=== PATIENT | male | born 1960 | race Caucasian/White ===

== ENCOUNTER → 2017-02-18 | Outpatient (CLI) | payer OTHER ==
[~2017-02-18] MED LIST: CHOL1000 PO; MULT-506 PO
--- NOTE | 2017-02-19 05:51 | PAP/PSG TECHNICIAN REPORT ---
[facility] Furnace Repairer Helper Polysomnogram Report Study name: None Report date: 02/19/2017 Study date: 02/18/2017 Referring Physician: Catalina Mars M.D. Name: KIMI QUIROZ Interpreting Physician: Kyra Mars M.D. Date of : 1960 Furnace Repairer Helper: Ivan Kirby RPSGT. Sex: Male Age: 56 StudyType: PSG Weight: 246 lbs Height: 56 years, Height 5' 8.5" BMI: 36.86 Medications: LEVOXYL 75 MCG, NASONEX 50 MCG/ACT,MULTI VITAMINS Patient History PATIENT HAS HISTORY OF FATIGUE, LOW ENERGY, SNORING, AND EXCESSIVE DAYTIME SLEEPINESS. ALSO, HAS HISTORY OF RESTLESSNESS. HE IS HERE TODAY FOR AN EVALUATION FOR OCTAVIA. ESS = 9 RM 7 Parameters Monitored NPSG: E1-M2, E2-M1, Fp1-M2, Fp2-M1, F3-M2, F4-M2, F4-M1, C3-M2, C4-M2, C4-M1, O1-M2, O2-M2, O2-M1, T3-M2, T4-M1, P3-M2, P4-M1, CHIN1, CHIN2, HR, EKG, Legs, PFLOW, SNOR, FLOW, CFLOW, Tidal Volume, THOR, ABDO, SpO2, PLTH, CPRESS, ETCO2 Wave, ETCO2, pH Sleep Architecture Sleep Stages Time at Lights Off 9:01:01 PM STAGES Time (min.) TST (%) Time at Lights On 5:32:01 AM Wake 29.0 -- Total Recording Time (TRT) 511.50 min. N1 10.0 2 Total Sleep Period (TSP) 498.5 min. N2 302.5 63 Total Sleep Time (TST) 482.0min. N3 80.0 17 Awake Time 29.5 min. REM 89.5 19 Wake after Sleep Onset 18.5 min. Sleep Efficiency (SE) 94 % Sleep Onset Latency (KANE) 10.5 min. Number of Stage 1 Shifts None Awakenings 19 Stage Changes 85 Number of REM periods 8 REM 89.5 19 REM Latency 68.5 min. NREM 392.5 81 Body Position Analysis Supine Right Left Side Prone Vertical Total Sleep Time (min.) 294.6 42.2 166.1 208.27 0.0 0.0 Total Sleep Time (%) 57% 9% 34% 43 0% N/A% Total Sleep Time REM (min.) 47.0 19.5 23.0 None 0.0 0.0 Total Sleep Time NREM (min.) 226.7 22.7 143.1 None 0.0 0.0 Intermittent Wake (min.) 20.9 1.1 7.0 None 0.0 0.0 Total Sleep Period (%) 57% None None None None None Arousals Myoclonus (PLM) * Events Count Index Events Count Index Spontaneous 19 2 Events Awake (PLMW) 35 72.4 Respiratory 13 1.9 Events Asleep w/ Arousal (PLMA) 6 0.7 PLM 6 1 Events Asleep w/o Arousal (PLMS) 32 4.0 Snoring 10 1 Total Asleep 38 4.7 Total 48 6 Total 73 9 Respiratory Analysis * CA OA MA CH H RERA Total Count 8 28 0 0 148 3 184 Index 1.0 3.5 0.0 0 18.4 0 23.3 Mean Duration 17.3 17.4 0.0 0.00 19.0 15.7 18.6 Longest Duration 22.1 28.5 0.0 0.00 0.0 16.9 59.6 Respiratory Event Summary Total Supine ~Supine Right Left Prone REM NREM Apneas Count 36 34 2 1 1 N/A 26 10 Index 4.5 7 1 1.4 0.4 N/A 17 2 Hypopneas (4% Desat) Count 148 125 23 7 16 N/A 63 85 Index 18.4 27.4 7 10.0 5.8 N/A 42.2 13.0 Apneas & All Hypopneas Count 184 159 25 8 17 N/A 89 95 Index 22.9 35 7 11 6 N/A 59.7 14.5 Respiratory Events (Intelligence Clerk+All Hyp+RERA) Count 184 160 27 8 19 N/A 89 95 Index 23.3 35 8 11.4 6.9 N/A 59.7 15.0 Respiratory Related Arousal Count 13 160 4 0 4 N/A 5 10 Index 1.9 2 1 0 1 N/A 3 2 Snoring Analysis Supine Right Left Prone REM NREM Total Snore duration 59.9 min Snores count 1,721 212 585 N/A 437 2,081 2,518 Snore mean duration 1.4 Sec Snores index 377 302 211 N/A 293.0 318.1 313.4 TST with snoring (%) 12.4% Desaturation Event Summary: Minimum %SpO2 Event Count Mean/Min/Max Duration(sec.) Desaturation Index % Time In Bed > 90 177 22.7 / 6.0 / 60.0 33.9 61.2 86 - 90 39 22.0 / 6.0 / 93.7 12.1 37.8 81 - 85 2 9.4 / 8.8 / 10.0 25.6 0.9 76 - 80 0 N/A 0.0 0.1 71 - 75 0 N/A 0.0 0.0 66 - 70 0 N/A 0.0 0.0 61 - 65 0 N/A 0.0 0.0 56 - 60 0 N/A 0.0 0.0 51 - 55 0 N/A 0.0 0.0 < 50 0 N/A 0.0 0.0 Total REM NREM Awake <50% 0.0 min. 0.0 min. 0.0 min. 0.0 min. 51 - 60% 0.0 min. 0.0 min. 0.0 min. 0.0 min. 61 - 70% 0.0 min. 0.0 min. 0.0 min. 0.0 min. 71 - 80% 0.3 min. 0.2 min. 0.0 min. 0.1 min. 81 - 90% 197.7 min. 42.6 min. 148.5 min. 6.5 min. 91 - 100% 312.8 min. 46.7 min. 244.0 min. 22.2 min. Average 91 91 91 92 Minimum SpO2 79 79 83 80 Desaturation Event Index 22.5 56.3 15.1 20.7 # Desat. Events below 89% 105 62 40 3 Time(%) with Saturation below 89% 8.0 4.0 3.8 0.2 Time(min.) with Saturation below 89% 40.9 20.6 19.4 0.9 Time (mins) REM (mins) NREM (mins) % of TST SpO2 Below 90% 165 76 N89 20.8 SpO2 Below 88% 40 0 0 4 Heart Rate Analysis Min (bpm) Max (bpm) Average (bpm) Awake 49 86 67 NREM 47 83 59 REM 48 83 60 Overall 47 83 59 Supplemental O2 Values Minimum O2 level: None Value Start Time End Time Furnace Repairer Helper Comments Mr. Quiroz slept in the right, left and supine positions. No cardiac arrhythmia noted. Leg movements noted. No bruxism noted. Snoring was noted and scored as a 4 on a scale of 1 through 5. (0=no snoring, 5=snoring loud enough to be heard through a closed door or down the spence way) Mr. Quiroz awoke to use the restroom 0 times during the night. Mr. Quiroz stated I slept as well as I do when I am in my own bed. The final report will be interpreted and signed by a sleep physician. The completed physician report will then be placed in the patient medical record. Therapy (cm H2O) 0 TIB (min.) 511.0 TST (min.) 482.0 Sleep Onset (min.) 10.5 REM Onset From Sleep (min.) 68.5 Sleep Efficiency % 94 Wakefulness (%) 6 Wakefulness (min.) 29.5 NREM 1 (%) 2 NREM 1 (min.) 10.0 NREM 2 (%) 63 NREM 2 (min.) 302.5 NREM 3 (%) 17 NREM 3 (min.) 80.0 REM (%) 19 REM (min.) 89.5 # Arousals 48 Arousal Index 6 # Snore 2,518 Snore Index 313.4 AHI 22.9 AHI Supine 35 AHI Non-Supine 7 NREM AHI 14.5 REM AHI 59.7 RDI 23.3 # Obstructive Apnea 28 # Central Apnea 8 # Mixed Apnea 0 # Hypopneas 148 RERAs 3 Total Respiratory Events 187 Time Below SpO2 89% (min.) 40.0 Mean NREM SpO2 (%) 91 Mean REM SpO2 (%) 91 Mean Sleep SpO2 (%) 91 Min NREM SpO2 (%) 83 Min REM SpO2 (%) 79 Position Supine (min.) 294.6 Position Non-supine (min.) 208.3 LM Index Sleep 4.7 LM Index NREM 3.8 LM Index REM 8.7 Mean Heart Rate (bpm) 59 Min Heart Rate (bpm) 47
--- NOTE | 2017-03-03 21:29 | POLYSOMNOGRAPH REPORT ---
REFERRING PERSON: Dr. Anthony Mars. VALET ATTENDANT: Ivan Kirby. Mr. Quiroz is a 56-year-old male with fatigue, snoring and excessive daytime sleepiness. He comes to the sleep lab to rule out sleep-disordered breathing. His [place] sleepiness scale score on the evening of this study is 9. BMI is 36.86. Following the technical and digital specifications of the [place] [employer] (AASM) a standard diagnostic polysomnogram was performed monitoring EEG, EOG, EMG (chin and leg deviations), oxygen saturation, body position, digital video, respiratory effort and airflow. The sleep Stage and event scoring was based on the AASM Manual for the Scoring of Sleep and Associated Events 2007 edition. Apneas are defined as a drop in the peak thermal sensor excursion by >90% of baseline for at least 10 seconds. Hypopneas were scored using the 4% oxygen desaturation rule (4A-[employer]ic[employer]) and a decrease in the nasal pressure excursions by >30% of baseline for at least 10 seconds. Respiratory effort-related arousal (RERA's) is defined as a sequence of breaths lasting at least 10 seconds characterized by increasing respiratory effort or flattening of the nasal pressure waveform leading to an arousal from sleep when the sequence of breaths does not meet criteria for an apnea or hypopnea. Apnea Hypopnea index (AHI) is defined as the number of apneas and hypopneas occurring in an hour of sleep. Respiratory disturbance index (RDI) is defined as the number of apneas, hypopneas, and RERA's occurring in an hour of sleep. Mr. Quiroz's total sleep period time was 498.5 minutes. Total sleep time was 482 minutes. Sleep efficiency was 94%. Latency to sleep onset was 10.5 minutes with wake after sleep onset of 18.5 minutes. Total non-REM sleep time was 392.5 minutes. He spent 2% of that time in N1 sleep, 63% in N2 sleep and 17% in N3 sleep. REM latency was 68.5 minutes. Total REM sleep time was 98.5 minutes or 19% of total sleep time. There were 48 cortical arousals from sleep. Ten of these arousals were due to snoring, 6 due to periodic limb movements of sleep and 13 were due to respiratory events. The remaining 19 were spontaneous. There were 38 periodic limb movements. Limb movement index was 4.7. Limb movement with arousal index was 0.7. There were 8 central apneas, 28 obstructive apneas and no mixed apneas on this test. There were 148 hypopneas and 3 RERAs. Apnea-hypopnea index was 22.9, consistent with moderately severe sleep apnea. Supine AHI was 35, REM AHI was 59.7. There were 2118 snoring events recorded. Total sleep time with snoring was 12.4%. Mean saturation was 91% with desaturations to 79%. Saturations were less than 89% for 40.9 minutes of recorded time. This is significant nocturnal hypoxemia. There was no cardiac ectopy noted on this study. Heart rates ranged from a low of 47 beats per minute to a high of 83 beats per minute. IMPRESSION AND PLAN: Mr. Quiroz is a 56-year-old male with moderately severe sleep apnea, worse in REM sleep and supine sleep with nocturnal hypoxemia. 1. This patient would likely benefit from positive airway pressure therapy. He should return to the sleep lab for a full night titration and then based on those results be started on equipment at home. A download from his machine can be reviewed in 1 month both to check compliance as well as AHI and further pressure adjustments can occur at that time. 2. Alternatively, this patient could be started on auto titrating CPAP with pressures of 5-15 cm. A download from his machine can be reviewed in 1 month and he can be set to optimal pressure at that time. An n.p.o. can then be performed to ensure hypoxemia resolves with CPAP alone. 3. Should this patient be unwilling or unable to tolerate CPAP therapy, he should be referred to ear, nose and throat or oral surgery/dental medicine to discuss alternative treatments for sleep disordered breathing.
== END | disposition home or self-care (01) ==
LOC: C.NEUR 20:00
PROVIDERS: ATTEND Family Medicine
DX: R06.83 Snoring (principal); R53.83 Other fatigue; G47.30 Sleep apnea, unspecified; R09.02 Hypoxemia

== ENCOUNTER → 2017-04-29 | Outpatient (CLI) | payer OTHER ==
--- NOTE | 2017-04-30 05:44 | PAP/PSG TECHNICIAN REPORT ---
[facility] Broomcorn Grader Polysomnogram Report Study name: None Report date: 04/30/2017 Study date: 04/29/2017 Referring Physician: CAMILO TONEY MD Name: KIMI QUIROZ Interpreting Physician: Karthikeyan Barnhart M.D. Date of : 1960 Broomcorn Grader: Ivan Kirby RPSGT. Sex: Male Age: 56 StudyType: PSG PAP Weight: 245 lbs Height: 56 years, Height 5' 9" BMI: 36.18 Medications: LEVOXYL 75 MCG, NASONEX 50 MCG/ACT Patient History PATIENT HAD A SLEEP STUDY DONE IN FEBRUARY OF 2017. HE WAS POSITIVE FOR OCTAVIA WITH AN AHI OF 22.9/HR. HE IS HERE TODAY FOR A CPAP TITRATION. ESS = 9 RM 6 Parameters Monitored NPSG: E1-M2, E2-M1, Fp1-M2, Fp2-M1, F3-M2, F4-M2, F4-M1, C3-M2, C4-M2, C4-M1, O1-M2, O2-M2, O2-M1, T3-M2, T4-M1, P3-M2, P4-M1, CHIN1, CHIN2, HR, EKG, Legs, PFLOW, SNOR, FLOW, CFLOW, Tidal Volume, THOR, ABDO, SpO2, PLTH, CPRESS, ETCO2 Wave, ETCO2, pH Sleep Architecture Sleep Stages Time at Lights Off 10:03:51 PM STAGES Time (min.) TST (%) Time at Lights On 5:11:51 AM Wake 72.5 -- Total Recording Time (TRT) 428.50 min. N1 14.0 4 Total Sleep Period (TSP) 394.5 min. N2 227.5 64 Total Sleep Time (TST) 355.5min. N3 46.5 13 Awake Time 73.0 min. REM 67.5 19 Wake after Sleep Onset 62.5 min. Sleep Efficiency (SE) 83 % Sleep Onset Latency (KANE) 10.0 min. Number of Stage 1 Shifts None Awakenings 16 Stage Changes 60 Number of REM periods 2 REM 67.5 19 REM Latency 99.0 min. NREM 288.0 81 Body Position Analysis Supine Right Left Side Prone Vertical Total Sleep Time (min.) 79.0 47.5 252.3 299.84 0.0 0.0 Total Sleep Time (%) 16% 13% 71% 84 0% N/A% Total Sleep Time REM (min.) 0.0 0.0 67.5 None 0.0 0.0 Total Sleep Time NREM (min.) 55.7 47.5 184.8 None 0.0 0.0 Intermittent Wake (min.) 23.3 12.0 37.1 None 0.0 0.0 Total Sleep Period (%) 19% None None None None None Arousals Myoclonus (PLM) * Events Count Index Events Count Index Spontaneous 16 3 Events Awake (PLMW) 65 53.8 Respiratory 2 0.3 Events Asleep w/ Arousal (PLMA) 8 1.4 PLM 8 1 Events Asleep w/o Arousal (PLMS) 20 3.4 Snoring 2 0 Total Asleep 28 4.7 Total 28 5 Total 93 13 Respiratory Analysis * CA OA MA CH H RERA Total Count 0 0 0 0 12 4 12 Index 0.0 0.0 0.0 0 2.0 1 2.7 Mean Duration 0.0 0.0 0.0 0.00 17.0 17.7 17.2 Longest Duration 0.0 0.0 0.0 0.00 0.0 25.2 25.2 Respiratory Event Summary Total Supine ~Supine Right Left Prone REM NREM Apneas Count 0 0 0 0 0 N/A 0 0 Index 0.0 0 0 0.0 0.0 N/A 0 0 Hypopneas (4% Desat) Count 12 0 12 0 12 N/A 4 8 Index 2.0 0.0 2 0.0 2.9 N/A 3.6 1.7 Apneas & All Hypopneas Count 12 0 12 0 12 N/A 4 8 Index 2.0 0 2 0 3 N/A 3.6 1.7 Respiratory Events (Fibrous Wallboard Inspector+All Hyp+RERA) Count 12 0 16 0 16 N/A 4 8 Index 2.7 0 3 0.0 3.8 N/A 5.3 2.1 Respiratory Related Arousal Count 2 0 2 0 2 N/A 1 1 Index 0.3 0 0 0 0 N/A 1 0 Snoring Analysis Supine Right Left Prone REM NREM Total Snore duration 8.7 min Snores count 5 2 409 N/A 105 311 416 Snore mean duration 1.3 Sec Snores index 5 3 97 N/A 93.3 64.8 70.2 TST with snoring (%) 2.4% Desaturation Event Summary: Minimum %SpO2 Event Count Mean/Min/Max Duration(sec.) Desaturation Index % Time In Bed > 90 30 27.5 / 9.0 / 57.3 4.7 93.4 86 - 90 2 17.1 / 4.8 / 29.5 4.5 6.6 81 - 85 0 N/A 0.0 0.0 76 - 80 0 N/A 0.0 0.0 71 - 75 0 N/A 0.0 0.0 66 - 70 0 N/A 0.0 0.0 61 - 65 0 N/A 0.0 0.0 56 - 60 0 N/A 0.0 0.0 51 - 55 0 N/A 0.0 0.0 < 50 0 N/A 0.0 0.0 Total REM NREM Awake <50% 0.0 min. 0.0 min. 0.0 min. 0.0 min. 51 - 60% 0.0 min. 0.0 min. 0.0 min. 0.0 min. 61 - 70% 0.0 min. 0.0 min. 0.0 min. 0.0 min. 71 - 80% 0.0 min. 0.0 min. 0.0 min. 0.0 min. 81 - 90% 26.9 min. 5.9 min. 16.1 min. 4.9 min. 91 - 100% 379.9 min. 59.7 min. 258.9 min. 61.4 min. Average 92 93 92 93 Minimum SpO2 78 88 88 78 Desaturation Event Index 4.3 3.6 2.7 11.6 # Desat. Events below 89% 10 1 4 5 Time(%) with Saturation below 89% 0.7 0.2 0.3 0.2 Time(min.) with Saturation below 89% 3.0 0.9 1.2 0.9 Time (mins) REM (mins) NREM (mins) % of TST SpO2 Below 90% 14 3 N11 2.2 SpO2 Below 88% 2 0 0 0 Heart Rate Analysis Min (bpm) Max (bpm) Average (bpm) Awake 35 188 62 NREM 46 127 56 REM 50 127 58 Overall 46 127 56 Supplemental O2 Values Minimum O2 level: None Value Start Time End Time Broomcorn Grader Comments Mr. Quiroz slept in the right, left and supine positions. No cardiac arrhythmia noted. Leg movements noted. No bruxism noted. CPAP was initiated at +4 CMH2O and up-titrated to an optimal level of +11 CMH2O, which nearly eliminated all respiratory events and snoring. A Parnell and Paykel Eson 2 nasal mask size large was used during titration Mr. Quirzo awoke to use the restroom 0 times during the night. Mr. Quiroz stated I did not sleep as well as I do when I am in my own bed. The final report will be interpreted and signed by a sleep physician. The completed physician report will then be placed in the patient medical record. Therapy Event: Therapy (cm H20) 4 5 6 7 8 10 11 Total Time at Pressure (min.) 86.2 10.3 12.9 42.2 150.6 6.9 118.8 TST at Pressure (min.) 52.2 10.3 12.9 42.2 141.6 6.9 89.3 # Periods 1 1 1 1 1 1 1 Sleep Onset (min.) 10.0 0.0 0.0 0.0 0.0 0.0 0.0 REM Onset (min.) N/A N/A 12.5 0.0 0.0 N/A N/A Sleep Efficiency % 60 100 100 100 94 100 75 Wakefulness (%) 39.4 0.0 0.0 0.0 6.0 0.0 24.8 Wakefulness (min.) 34.0 0.0 0.0 0.0 9.0 0.0 29.5 NREM 1 (%) 5.8 0.0 0.0 0.0 2.7 0.0 4.2 NREM 1 (min.) 5.0 0.0 0.0 0.0 4.0 0.0 5.0 NREM 2 (%) 20.5 100.0 96.7 0.0 63.6 100.0 71.0 NREM 2 (min.) 17.7 10.3 12.5 0.0 95.7 6.9 84.3 NREM 3 (%) 34.2 0.0 0.0 0.0 11.3 0.0 0.0 NREM 3 (min.) 29.5 0.0 0.0 0.0 17.0 0.0 0.0 REM (%) 0.0 0.0 3.3 100.0 16.5 0.0 0.0 REM (min.) 0.0 0.0 0.4 42.2 24.9 0.0 0.0 # Arousals 5 0 0 3 13 0 7 Arousal Index 5.7 0.0 0.0 4.3 5.5 0.0 4.7 # Snore 4 24 50 101 118 24 95 Snore Index 4.6 140.1 231.9 143.6 50.0 207.3 63.8 AHI 0.0 0.0 4.6 4.3 3.4 0.0 0.0 AHI Supine N/A N/A N/A N/A N/A N/A 0.0 AHI Non-Supine 0.0 0.0 4.6 4.3 3.4 0.0 0.0 NREM AHI 0.0 0.0 4.8 N/A 3.6 0.0 0.0 REM AHI N/A N/A 0.0 4.3 2.4 N/A N/A RDI 0.0 0.0 4.6 7.1 3.8 0.0 0.7 # Obstructive 0 0 0 0 0 0 0 # Central Ap 0 0 0 0 0 0 0 # Mixed 0 0 0 0 0 0 0 # Hypopneas 0 0 1 3 8 0 0 RERAS 0 0 0 2 1 0 1 Total Respiratory Events 0 0 1 5 9 0 1 Time Below SpO2 89.00% (min.) 0.4 0.4 0.0 0.9 0.3 0.0 0.1 Mean NREM SpO2 (%) 91 91 92 N/A 93 93 92 Mean REM SpO2 (%) N/A N/A 91 92 93 N/A N/A Mean Sleep SpO2 (%) 91 91 92 92 93 93 92 Min NREM SpO2 (%) 88 88 90 N/A 88 91 88 Min REM SpO2 (%) N/A N/A 90 88 90 N/A N/A Position Supine (min.) 0.0 0.0 0.0 0.0 0.0 0.0 55.7 Position Non-supine (min.) 52.2 10.3 12.9 42.2 141.6 6.9 33.7 LM Index Sleep 9.2 5.8 0.0 5.7 5.5 0.0 1.3 LM Index NREM 9.2 5.8 0.0 N/A 4.6 0.0 1.3 LM Index REM N/A N/A 0.0 5.7 9.6 N/A N/A Mean Heart Rate (bpm) 61 60 59 58 55 54 53 Min Heart Rate (bpm) 55 54 54 50 47 51 46
--- NOTE | 2017-05-01 08:51 | POLYSOMNOGRAPH REPORT ---
CLINICAL DATA: A 56-year-old male with BMI of 36.[address] Mariela Denise for a CPAP study. He had a diagnostic sleep study in February 2017, which showed moderate sleep apnea with an AHI of 23. SLEEP ARCHITECTURE: Total sleep period was 394.5 minutes. Total sleep time was 355.5 minutes divided between 288 minutes of non-REM sleep and 67.5 minutes of REM sleep. Sleep onset latency was 10 minutes. REM latency was 99 minutes. Sleep efficiency was 82%. Wake after sleep onset was 62.5 minutes. Sleep consisted of stage N1 4%, stage N2 64%, stage N3 13%, and REM 19%. AROUSAL DATA: 28 arousals were recorded for an index of 5 per hour. 16 were spontaneous. PLM DATA: 28 limb movements during sleep were noted for an index of 4.7 per hour with arousal index of 1.4 per hour. RESPIRATORY DATA: The AHI was 2. There were 12 hypopneic episodes with a mean duration of 17 seconds. OXIMETRY DATA: No hypoxemia was seen. Oxygen madisyn was 88%. Mean saturation was 92%. EKG: Heart rates ranged from 46-127 beats per minute. No arrhythmias were noted. FOOD SERVICE CASHIER'S COMMENTS AND TREATMENT SUMMARY: The patient slept in the right, left, and supine positions. He utilized a Parnell and Paykel Eson 2 nasal mask size large. He was started on CPAP and titrated up to his final pressure of 11 cm of water pressure. At 11 cm of water pressure, he slept for 89 minutes with an AHI of 0. IMPRESSION: Moderate sleep apnea/hypopnea corrected with CPAP 11 cm water pressure Parnell and Paykel Eson 2 nasal mask size large. RECOMMENDATIONS: The patient should be started on the above noted treatment regimen and seen back in followup within 90 days to document efficacy and compliance. MTDD
== END | disposition home or self-care (01) ==
LOC: C.NEUR 20:00
PROVIDERS: ATTEND Family Medicine
DX: G47.33 Obstructive sleep apnea (adult) (pediatric) (principal); G47.34 Idiopathic sleep related nonobstructive alveolar hypoventilation